=== PATIENT | female | born 1945 | race Caucasian/White ===

== ENCOUNTER 2018-04-06 12:27 | Outpatient (CLI) | payer OTHER | END 2018-04-06 12:31 | disposition home or self-care (01) | LOC: SONOGRAMA 12:27 | DX: N62 Hypertrophy of breast (principal) ==

== ENCOUNTER 2018-05-26 10:44 | Outpatient (CLI) | payer OTHER ==
[2018-06-07] MEDS ORDERED: SYNTHROID75 MCG PO (10:28)
[2018-06-07] MEDS ORDERED: MONTELUKAST SOD10 MG PO (10:28)
[2018-06-07] MEDS ORDERED: SIMVASTATIN20 MG PO (10:28)
[2018-06-07] MEDS ORDERED: LISINOPRIL20 MG PO (10:29)
== END 2018-05-26 11:01 | disposition home or self-care (01) ==
LOC: SONOGRAMA 10:44
DX: C50.412 Malignant neoplasm of upper-outer quadrant of left female breast (principal); N63.21 Unspecified lump in the left breast, upper outer quadrant

== ENCOUNTER 2018-06-16 05:45 | Day surgery (SDC) | payer OTHER ==
[~2018-06-16 05:45] MED LIST: LISINOPRIL20 MG PO; MONTELUKAST SOD10 MG PO; SIMVASTATIN20 MG PO; SYNTHROID75 MCG PO
== END 2018-06-16 19:50 | disposition home or self-care (01) ==
LOC: CIR.AMB 05:45
DX: D05.12 Intraductal carcinoma in situ of left breast (principal)

== ENCOUNTER 2018-08-07 12:22 | Outpatient (CLI) | payer OTHER | END 2018-08-07 12:37 | disposition home or self-care (01) | LOC: MAMO-SONO 12:22 | DX: C50.912 Malignant neoplasm of unspecified site of left female breast (principal) ==

== ENCOUNTER 2019-08-27 08:11 | Outpatient (CLI) | payer OTHER | END 2019-08-27 10:00 | disposition home or self-care (01) | LOC: NUCLEAR 08:11 | DX: C50.411 Malignant neoplasm of upper-outer quadrant of right female breast (principal) | CPT/HCPCS: 78816; A9552 ==

== ENCOUNTER 2021-08-18 14:50 | Outpatient (CLI) | payer OTHER | END 2021-08-18 15:15 | disposition home or self-care (01) | LOC: PPH VACUNA 14:50 | PROVIDERS: ATTEND Emergency Medicine Pediatric Emergency Medicine | DX: Z23 Encounter for immunization (principal) ==